=== PATIENT | female | born 1955 | race Caucasian/White ===

== ENCOUNTER 2021-03-04 20:10 | Emergency (ER) | payer MEDICARE, BC ==
[2021-03-04] MEDS ORDERED: HYDROmorphone 2 MG/ML SDV IVPUSH ONE ×2 (20:19→21:26)
[2021-03-04] MEDS ORDERED: Sodium Chloride 0.9% 10 ML Syringe FLUSH PRN (20:19)
[2021-03-04] MEDS ORDERED: Ondansetron 4 MG/2 ML SDV IVPUSH ONE ×2 (20:20→22:14)
--- NOTE | 2021-03-04 20:29 | EDM.PDOC ---
ED HPI GENERAL MEDICAL PROBLEM - General Stated Complaint: HIP PAIN Time Seen by Provider: 03/04/21 20:25 Source of Information: Reports: Patient History Limitations: Reports: No Limitations - History of Present Illness INITIAL COMMENTS - FREE TEXT/NARRATIVE: Shanelle fell on the right hip. Complains of pain,inability to move or get up.Brought by family. R hip Pain Score (Numeric/FACES): 10 - Related Data Allergies Allergy/AdvReac Type Severity Reaction Status Date / Time Penicillins Allergy Rash Verified 03/04/21 20:41 Home Meds: Home Meds Aspirin 81 mg PO BEDTIME 03/04/21 [History] Cholestyramine/Sucrose [Cholestyramine Packet] 2 gm PO DAILY 03/04/21 [History] FLUoxetine HCl [Prozac] 30 mg PO DAILY 03/04/21 [History] Gabapentin [Neurontin] 100 mg PO QID 03/04/21 [History] Hydroxychloroquine [Plaquenil] 200 mg PO BID 03/04/21 [History] amLODIPine Besylate [Norvasc] 15 mg PO BEDTIME 03/04/21 [History] hydroCHLOROthiazide [Hydrochlorothiazide] 12.5 mg PO DAILY 03/04/21 [History] predniSONE [Prednisone] 5 mg PO DAILY 03/04/21 [History] rOPINIRole [Requip XL] 2 mg PO BEDTIME 03/04/21 [History] Review of Systems - Review of Systems Review Of Systems: Comprehensive ROS is negative, except as noted in HPI. ED EXAM, GENERAL - Physical Exam Exam: See Below Free Text/Narrative:: Obvious deformity of right hip.External Rotation.Tender. Exam Limited By: No Limitations General Appearance: Alert, WD/WN Course - Vital Signs Last Recorded V/S: Last Vital Signs Temp 97.8 F 03/04/21 20:10 Pulse 87 03/04/21 20:10 Resp 20 03/04/21 20:10 BP 158/79 H 03/04/21 20:10 Pulse Ox 98 03/04/21 20:10 - Orders/Labs/Meds Orders: Active Orders 24 hr Category Date Time Status Insert Warren Catheter [Insert Urinary Catheter] [OM.PC] Care 03/04/21 22:00 Ordered Q24H Urinary Catheter Assessment [RC] QSHIFT Care 03/04/21 21:50 Active Femur Min 2V Rt [CR] Stat Exams 03/04/21 20:20 Taken Hip Min 2V or 3V w Pelvis Rt [CR] Stat Exams 03/04/21 20:20 Taken CORONAVIRUS COVID-19 JENNY [MOLEC] Urgent Lab 03/04/21 21:13 Ordered Sodium Chloride 0.9% [Saline Flush] Med 03/04/21 20:19 Active 10 ml FLUSH ASDIRECTED PRN Peripheral IV Insertion Adult [OM.PC] Routine Oth 03/04/21 20:19 Ordered Medication Orders Sodium Chloride (Sodium Chloride 0.9% 10 Ml Syringe) 10 ml FLUSH ASDIRECTED PRN PRN Reason: Keep Vein Open Last Admin: 03/04/21 20:25 Dose: 10 ml Documented by: ISRAEL Labs: Laboratory Tests 03/04/21 03/04/21 Range/Units 21:00 21:00 WBC 6.6 (3.0-10.3) x10-3/uL RBC 4.28 (3.60-5.20) x10(6)uL Hgb 13.3 (11.4-15.5) g/dL Hct 39.4 (34.2-48.2) % MCV 92.1 (76.7-100.5) fL MCH 31.1 (23.9-33.9) pg MCHC 33.7 (31.9-34.8) g/dL RDW 12.7 (12.3-16.5) % Plt Count 273 (151-488) x10(3)uL MPV 7.7 (7.1-12.4) fL Neut % (Auto) 66.0 (30.8-76.2) % Lymph % (Auto) 25.9 (18.4-52.1) % Jessamine % (Auto) 5.5 (4.4-15.7) % Eos % (Auto) 1.8 (0.6-8.1) % Baso % (Auto) 0.8 (0.2-1.5) % Neut # (Auto) 4.4 (1.5-6.3) x10-3/uL Lymph # (Auto) 1.7 (1.0-4.4) x10-3/uL Jessamine # (Auto) 0.4 (0.3-1.0) x10-3/uL Eos # (Auto) 0.1 (0.0-0.8) x10-3/uL Baso # (Auto) 0.0 (0.0-0.1) x10-3/uL Sodium 137 (135-145) mmol/L Potassium 3.3 L (3.5-5.3) mmol/L Chloride 98 L (100-110) mmol/L Carbon Dioxide 24 (21-32) mmol/L BUN 17 (7-18) mg/dL Creatinine 1.3 H (0.55-1.02) mg/dL Est Cr Clr Drug Dosing 33.21 mL/min Estimated GFR (MDRD) 41 L (>60) BUN/Creatinine Ratio 13.1 (9-20) Glucose 152 H (80-116) mg/dL Calcium 8.8 (8.6-10.2) mg/dL Meds: Medications Generic Name Dose Route Start Last Admin Trade Name Freq PRN Reason Stop Dose Admin Sodium Chloride 10 ml 03/04/21 20:19 03/04/21 20:25 Sodium Chloride 0.9% 10 Ml Syringe FLUSH 10 ml ASDIRECTED PRN Administration Keep Vein Open Discontinued Medications Generic Name Dose Route Start Last Admin Trade Name Freq PRN Reason Stop Dose Admin Hydromorphone HCl 1 mg 03/04/21 20:19 03/04/21 20:34 Hydromorphone 2 Mg/Ml Sdv IVPUSH 03/04/21 20:20 1 mg ONETIME ONE Administration Hydromorphone HCl 1 mg 03/04/21 21:26 Hydromorphone 2 Mg/Ml Sdv IVPUSH 03/04/21 21:27 ONETIME ONE Ondansetron HCl 4 mg 03/04/21 20:20 03/04/21 20:32 Ondansetron 4 Mg/2 Ml Sdv IVPUSH 03/04/21 20:21 4 mg ONETIME ONE Administration Departure - Departure Time of Disposition: 21:51 Disposition: DC/Tfer to Acute Hospital 02 Clinical Impression: Hip fracture Qualifiers: Encounter type: initial encounter Fracture type: closed Laterality: right Qualified Code(s): S72.001A - Fracture of unspecified part of neck of right femur, initial encounter for closed fracture - Discharge Information Sepsis Event Note (ED) - Focused Exam Vital Signs: Vital Signs Temp Pulse Resp BP Pulse Ox 03/04/21 20:10 97.8 F 87 20 158/79 H 98 - Problem List & Annotations (1) Hip fracture SNOMED Code(s): 662295243 Code(s): S72.009A - FRACTURE OF UNSP PART OF NECK OF UNSP FEMUR, INIT Stat us: Acute Qualifiers: Encounter type: initial encounter Fracture type: closed Laterality: right Qualified Code(s): S72.001A - Fracture of unspecified part of neck of right femur, initial encounter for closed fracture - Problem List Review Problem List Initiated/Reviewed/Updated: Yes - My Orders Last 24 Hours: My Active Orders 03/04/21 20:19 Sodium Chloride 0.9% [Saline Flush] 10 ml FLUSH ASDIRECTED PRN Peripheral IV Insertion Adult [OM.PC] Routine 03/04/21 20:20 Femur Min 2V Rt [CR] Stat Hip Min 2V or 3V w Pelvis Rt [CR] Stat 03/04/21 21:13 CORONAVIRUS COVID-19 JENNY [MOLEC] Urgent 03/04/21 21:50 Urinary Catheter Assessment [RC] QSHIFT 03/04/21 22:00 Insert Warren Catheter [Insert Urinary Catheter] [OM.PC] Q24H - Assessment/Plan Last 24 Hours: My Active Orders 03/04/21 20:19 Sodium Chloride 0.9% [Saline Flush] 10 ml FLUSH ASDIRECTED PRN Peripheral IV Insertion Adult [OM.PC] Routine 03/04/21 20:20 Femur Min 2V Rt [CR] Stat Hip Min 2V or 3V w Pelvis Rt [CR] Stat 03/04/21 21:13 CORONAVIRUS COVID-19 JENNY [MOLEC] Urgent 03/04/21 21:50 Urinary Catheter Assessment [RC] QSHIFT 03/04/21 22:00 Insert Warren Catheter [Insert Urinary Catheter] [OM.PC] Q24H Plan: IV peripheral line obtained.Dilaudid for pain control. Xray confirmed Femur Fracture. Will transfer to [facility]
[2021-03-04] MEDS ORDERED: Ondansetron 4 MG/2 ML SDV ONE (22:15)
--- NOTE | 2021-03-06 12:01 | CR ---
INDICATION: Fall. RIGHT FEMUR: Four views of the right femur were obtained 03/04/21 - no comparisons. There is a comminuted fracture extending through the greater trochanteric area and into the proximal shaft with lateral angulation of the inferior aspect of the proximal fracture fragment with respect to the femoral shaft producing offset at the distal aspect of the fracture fragment of approximately 23 mm with anterior offset at the proximal aspect of the fracture site of approximately 17 mm. There also appears to be overriding of the fracture fragments of approximately 8.5 mm. Severe narrowing of the craniolateral joint space of the right hip joint is noted. IMPRESSION: 1. Comminuted fracture of the proximal femur with deformity. 2. Osteoarthritis with severe loss of craniolateral joint space - virtually no remaining joint space craniolaterally - of the right hip. [facility]
--- NOTE | 2021-03-06 12:05 | CR ---
INDICATION: Fall. RIGHT HIP AND PELVIS: AP views x2 of the pelvis were obtained with frontal and lateral views of the right hip revealing comminuted fracture of the proximal femur with deformity as noted above and severe degenerative changes at the right hip joint. Total hip arthroplasty is noted on the left which appears to be in good position and alignment without evidence of a complicating process. Phleboliths are noted in the pelvis. IMPRESSION: 1. Comminuted fracture of the proximal femur with deformity. 2. Severe degenerative changes with virtually no remaining joint space along the portion of the craniolateral right hip joint. [facility]
== END 2021-03-04 22:26 ==
LOC: FB.ED 20:10
DX: S72.001A Fracture of unspecified part of neck of right femur, initial encounter for closed fracture (principal); Z88.0 Allergy status to penicillin; Z79.82 Long term (current) use of aspirin; Z79.899 Other long term (current) drug therapy; W19.XXXA Unspecified fall, initial encounter
CPT/HCPCS: 36415; 51702; 73502; 73552; 80048; 85025; 96374; 96375; 96376; 99285; J1170; J2405; U0002